=== PATIENT | male | born 1945 | race Caucasian/White ===

== ENCOUNTER 2023-08-22 06:26 | Day surgery (SDC) | payer OTHER, SELFPAY ==
[2023-08-20 07:31] VITALS: BMI 27.7
--- NOTE | 2023-08-20 13:47 | PTCARENOTE ---
Patients 08/19 EKG Abnormal, reviewed by Dr. Adame. No addition interventions indicated.
[2023-08-22 11:58] VITALS: BP 157/90
[2023-08-22] MEDS: TYLENOL 1000 MG PO (12:15)
[2023-08-22] MEDS: NORMOSOL-R 1000 IV (12:17)
[2023-08-22 14:28] VITALS: BP 141/86; BP 157/90
[2023-08-22 14:30] VITALS: BP 137/86
[2023-08-22 14:45] VITALS: BP 140/84
[2023-08-22 15:00] VITALS: BP 131/76
[2023-08-22 15:15] VITALS: BP 138/87
== END 2023-08-22 16:05 | disposition home or self-care (01) ==
LOC: SDS 06:26
PROVIDERS: ATTENDING PHYSICIAN Otolaryngology; FAMILY PHYSICIAN Family Medicine
DX: C32.0 Malignant neoplasm of glottis (principal); D38.0 Neoplasm of uncertain behavior of larynx
CPT/HCPCS: 31535; 88305; 36415; 93005